=== PATIENT | male | born 1980 | race Caucasian/White ===

== ENCOUNTER 2020-03-14 16:32 | Emergency (ER) | payer SELFPAY ==
[2020-03-14] MEDS ORDERED: HYDROCODONE/ACETAMINOPHEN 5-325 MG TABLET PO ONE (16:42)
[2020-03-14] MEDS ORDERED: LIDOCAINE 1% INJ-PF (10 MG/ML) 30 ML SDV INJ ONE (16:42)
[2020-03-14] MEDS ORDERED: DIPH/PERTUSS(ACELL)/TETANUS VAC/PF 0.5 ML SYR (>=10YO) IM ONE (16:42)
--- NOTE | 2020-03-14 16:57 | ER Document Report ---
HPI - HPI Patient complains to provider of: Finger laceration Time Seen by Provider: 03/14/20 16:34 Onset: Just prior to arrival Onset/Duration: Sudden Quality of pain: Achy Pain Level: 5 Context: Patient was using a 10 pound weight to hammer on a fence and slipped hitting his right fourth finger. Patient with laceration over the dorsal aspect of the finger. Associated Symptoms: Other - Right fourth finger injury Exacerbated by: Movement Relieved by: Denies Similar symptoms previously: No Recently seen / treated by doctor: No - ROS ROS below otherwise negative: Yes Systems Reviewed and Negative: Yes All other systems reviewed and negative - CONSTITUTIONAL Constitutional: DENIES: Fever - GASTROINTESTINAL Gastrointestinal: DENIES: Nausea - MUSCULOSKELETAL Musculoskeletal: REPORTS: Extremity pain - DERM Skin Color: Normal Skin Problems: Laceration Past Medical History - General Information source: Patient - Social History Smoking Status: Never Smoker Frequency of alcohol use: Occasional Drug Abuse: None Lives with: Family Family History: Reviewed & Not Pertinent Patient has homicidal ideation: No - Medical History Medical History: Negative Surgical Hx: Negative Vertical Provider Document - CONSTITUTIONAL Agree With Documented VS: Yes Exam Limitations: No Limitations General Appearance: WD/WN, No Apparent Distress - HEENT HEENT: Atraumatic, Normocephalic - NECK Neck: Normal Inspection - RESPIRATORY Respiratory: No Respiratory Distress - CARDIOVASCULAR Pulses: Normal: Radial - MUSCULOSKELETAL/EXTREMETIES Musculoskeletal/Extremeties: MATULIO, FROM Notes: Patient able to flex and extend finger against resistance, no obvious tendon laceration - NEURO Level of Consciousness: Awake, Alert, Appropriate Motor/Sensory: No Motor Deficit - DERM Integumentary: Warm, Dry, Laceration - 3 cm laceration dorsal aspect of right fourth finger over the PIP joint Course - Vital Signs Vital signs: Temp Pulse Resp BP Pulse Ox 98.8 F 99 16 145/90 H 98 03/14/20 16:37 03/14/20 16:37 03/14/20 16:37 03/14/20 16:37 03/14/20 16:37 Procedures - Immobilization Right Finger 4th digit Pre-Proc Neuro Vasc Exam: Normal Immobilizer type: Finger splint (Static) Performed by: PCT Post-Proc Neuro Vasc Exam: Normal Alignment checked and good: Yes - Laceration/Wound Repair Right Finger 4th digit Wound length (cm): 3 Wound's Depth, Shape: Irregular, Flap Anesthetic type: 1% Lidocaine Wound explored: Clean Wound Debrided: Minimal Wound Repaired With: Sutures Suture Size/Type: 4:0, Nylon Number of Sutures: 8 Layer Closure?: No Post-procedure wound care: Sterile dressing applied, Splint applied Post-procedure NV exam normal: Yes Complications: No Hands back picture: 1 - lac 2 - lac Discharge - Discharge Clinical Impression: Finger laceration Qualifiers: Encounter type: initial encounter Finger: ring finger Damage to nail status: without damage Foreign body presence: without foreign body Laterality: right Qu alified Code(s): S61.214A - Laceration without foreign body of right ring finger without damage to nail, initial encounter Condition: Stable Disposition: HOME, SELF-CARE Instructions: Laceration Care ([facility]), Prophylactic Antibiotic ([facility]), Tetanus Immunization Given ([facility]) Additional Instructions: Return immediately for any new or worsening symptoms: Fever, redness, streaks, increased pain, loss of mobility or any concerning symptoms Followup with your primary care provider as needed for recheck Suture removal in 14 days Prescriptions: Cephalexin Monohydrate [Keflex 500 mg Capsule] 500 mg PO Q6H 5 Days #20 capsule Naproxen [Naprosyn 250 Nmg Tablet] 1 tab PO BID #14 tablet Referrals: NORM KEANE DO [ACTIVE STAFF] - Follow up as needed
--- NOTE | 2020-03-14 17:12 | RADIOLOGY REPORT (SQ) ---
EXAM DESCRIPTION: FINGER RIGHT IMAGES COMPLETED DATE/TIME: 03/14/2020 5:00 pm REASON FOR STUDY: r 4th finger injury COMPARISON: None. NUMBER OF VIEWS: Three views. TECHNIQUE: AP, lateral, and oblique images acquired of the right fourth finger. LIMITATIONS: None. FINDINGS: MINERALIZATION: Normal. BONES: No acute fracture or dislocation. No worrisome bone lesions. SOFT TISSUES: Soft tissue swelling. No foreign body. OTHER: No other significant finding. IMPRESSION: 1. Soft tissue swelling. Clinically correlate. 2. No acute osseous findings. COMMENT: SITE OF TRAUMA/COMPLAINT MARKED/STAMP COMPLETED: NO. TECHNICAL DOCUMENTATION: JOB ID: [id number] 2010 [employer]- All Rights Reserved Reading location - IP/workstation name: [email or web address]
[2020-03-14 18:05] VITALS: BP 138/78
== END 2020-03-14 18:06 | disposition home or self-care (01) ==
LOC: ER 16:32
DX: S61.214A Laceration without foreign body of right ring finger without damage to nail, initial encounter (principal); W27.8XXA Contact with other nonpowered hand tool, initial encounter; Y93.89 Activity, other specified; Z23 Encounter for immunization
CPT/HCPCS: 99283; 90471; 73140; 90715; 12002; J3490